=== PATIENT | female | born 1990 | race Caucasian/White ===

== ENCOUNTER 2016-08-23 19:25 | Emergency (ER) | payer OTHER ==
--- NOTE | 2016-08-23 20:18 | EDPHY ---
H & P Time Seen by Provider: 08/23/16 20:17 HPI/ROS: Chief complaint. Migraine HPI. 25-year-old female history of migraines here with 2-3 day history of typical migraine headache. No trauma. It is hard to sleep. She feels like she has had little bit of an illness with cough and congestion. She has had some hot and cold sensation and chills today. No sore throat. Denies focal weakness paresthesias. She has been working a lot over this past weekend including multiple double shifts. She also is having her menstrual. Now ROS Constitutional. Chills Eyes. no problems with vision ENT. Congestion Cardiovascular. no chest pain Respiratory. Cough Abdominal. no abdominal pain, no nausea/vomiting, no diarrhea . no problems urinating MS. no calf pain/swelling, no neck/back pain, no joint pain Skin. no rash Lymph. no swollen glands Neuro. Headache Past Medical/Surgical History: Migraines Social History: Single, nonsmoker, no alcohol Smoking Status: Never smoked Physical Exam: General Appearance: Alert well-developed female mild distress vital signs are stable Eyes: Pupils equal and round no pallor or injection. ENT, Mouth: Mucous membranes are moist. Respiratory: There are no retractions, lungs are clear to auscultation. Cardiovascular: Regular rate and rhythm. Gastrointestinal: Abdomen is soft and nontender, no masses, bowel sounds normal. Neurological: Awake and alert, sensory and motor exams grossly normal. Skin: Warm and dry, no rashes. Musculoskeletal: Neck is supple nontender. Extremities symmetrical, full range of motion. Psychiatric: Patient is oriented X 3, there is no agitation. Constitutional: Initial Vital Signs Temperature (C) 37.6 C 08/23/16 19:44 Heart Rate 76 08/23/16 19:44 Respiratory Rate 18 08/23/16 19:44 Blood Pressure 129/77 H 08/23/16 19:44 O2 Sat (%) 99 08/23/16 19:44 O2 Delivery Mode Room Air Allergies/Adverse Reactions: No Known Allergies Allergy (Unverified 08/23/16 19:46) Home Medications: Medication Instructions Recorded Norgestimate-Ethinyl Estradiol 1 each PO 08/23/16 [Tri-Sprintec Tablet] Medical Decision Making Procedures: IV normal saline. Reglan, Benadryl, Toradol IV ED Course/Re-evaluation: Recheck 9:00 p.m.--the patient talking on her cell phone and feeling better Recheck at 9:35 p.m.. Patient is stable. Headache gone. Conversational and neurologically intact Differential Diagnosis: Apparent migraine headache. I do not find any obvious bacterial infection. She may certainly have a viral infection. No evidence for intracranial bleeding or CVA - Data Points Laboratory Results: Laboratory Results 08/23/16 20:25 08/23/16 20:25 08/23/16 08/23/16 20:25 20:25 WBC 3.95 10^3/uL 10^3/uL (3.80-9.50) RBC 4.52 10^6/uL 10^6/uL (4.18-5.33) Hgb 14.0 g/dL g/dL (12.6-16.3) Hct 40.9 % % (38.0-47.0) MCV 90.5 fL fL (81.5-99.8) MCH 31.0 pg pg (27.9-34.1) MCHC 34.2 g/dL g/dL (32.4-36.7) RDW 12.6 % % (11.5-15.2) Plt Count 175 10^3/uL 10^3/uL (150-400) MPV 10.9 fL fL (8.7-11.7) Neut % (Auto) 65.8 % % (39.3-74.2) Lymph % (Auto) 16.2 % % (15.0-45.0) Bay % (Auto) 16.2 % H % (4.5-13.0) Eos % (Auto) 1.0 % % (0.6-7.6) Baso % (Auto) 0.5 % % (0.3-1.7) Nucleat RBC Rel Count 0.0 % % (0.0-0.2) Absolute Neuts (auto) 2.60 10^3/uL 10^3/uL (1.70-6.50) Absolute Lymphs (auto) 0.64 10^3/uL L 10^3/uL (1.00-3.00) Absolute Monos (auto) 0.64 10^3/uL 10^3/uL (0.30-0.80) Absolute Eos (auto) 0.04 10^3/uL 10^3/uL (0.03-0.40) Absolute Basos (auto) 0.02 10^3/uL 10^3/uL (0.02-0.10) Absolute Nucleated RBC 0.00 10^3/uL 10^3/uL (0-0.01) Immature Gran % 0.3 % % (0.0-1.1) Immature Gran # 0.01 10^3/uL 10^3/uL (0.00-0.10) Sodium 140 mEq/L mEq/L (134-144) Potassium 3.8 mEq/L mEq/L (3.5-5.2) Chloride 102 mEq/L mEq/L (97-110) Carbon Dioxide 27 mEq/l mEq/l (22-31) Anion Gap 11 mEq/L mEq/L (8-16) BUN 11 mg/dL mg/dL (7-23) Creatinine 0.8 mg/dL mg/dL (0.6-1.0) Estimated GFR > 60 Glucose 108 mg/dL H mg/dL (70-100) Calcium 9.4 mg/dL mg/dL (8.5-10.4) Medications Given: Discontinued Medications Diphenhydramine HCl (Benadryl Injection) 25 mg IVP EDNOW ONE Stop: 08/23/16 20:38 Last Admin: 08/23/16 20:55 Dose: 25 mg Ketorolac Tromethamine (Toradol) 30 mg IVP EDNOW ONE Stop: 08/23/16 20:38 Last Admin: 08/23/16 20:53 Dose: 30 mg Metoclopramide HCl (Reglan Injection) 10 mg IVP EDNOW ONE Stop: 08/23/16 20:38 Last Admin: 08/23/16 20:50 Dose: 10 mg Departure - Departure Disposition: Home, Routine, Self-Care Condition: Good Instructions: Migraine Headache (ED) Additional Instructions: May use Tylenol 1000 mg every 4-6 hours, ibuprofen 600 mg every 6 hours as needed for headache. Return for worsening symptoms. Recheck in 2 days if not improving Referrals: NONE *PRIMARY CARE P,. [Primary Care Provider] - As per Instructions Stand Alone Forms: Work Excuse
[2016-08-23] MEDS ORDERED: KETOROLAC 30 MG/1 ML SDV IVP ONE (20:37)
[2016-08-23] MEDS ORDERED: METOCLOPRAMIDE 10 MG/2 ML VIAL IVP ONE (20:37)
[2016-08-23 20:42] LABS: % IMMATURE GRANULYOCYTES 0.3 % (0.0-1.1); ABSOLUTE IMMATURE GRANULOCYTES 0.01 10^3/uL (0.00-0.10); ADD DIFF? NO; ADD MORPH? NO; ADD SCAN? NO; ATYPICAL LYMPHOCYTE FLAG 20 (0-99); FRAGMENT RBC FLAG 0 (0-99); HEMATOCRIT 40.9 % (38.0-47.0); LEFT SHIFT FLG 0 (0-99); LIPEMIA HEMOLYSIS FLAG 90 (0-99); MEAN CELL HEMOGLOBIN CONCENTR. 34.2 g/dL (32.4-36.7); MEAN CELL VOLUME 90.5 fL (81.5-99.8); MEAN PLATELET VOLUME 10.9 fL (8.7-11.7); PLATELET CLUMPS FLAG 0 (0-99); PLATELET COUNT 175 10^3/uL (150-400); RED BLOOD CELL COUNT 4.52 10^6/uL (4.18-5.33); RED CELL DISTRIBUTION WIDTH 12.6 % (11.5-15.2)
[2016-08-23 20:48] LABS: ANION GAP 11 mEq/L (8-16); CALCIUM 9.4 mg/dL (8.5-10.4); CARBON DIOXIDE 27 mEq/l (22-31); CHLORIDE 102 mEq/L (97-110); CREATININE 0.8 mg/dL (0.6-1.0); GLOMERULAR FILTRATION RATE > 60; GLUCOSE 108 mg/dL (70-100); POTASSIUM 3.8 mEq/L (3.5-5.2); SODIUM 140 mEq/L (134-144)
[2016-08-23] MEDS ORDERED: NS 1,000 ML IV ONE (20:50)
[2016-08-23 20:57] VITALS: RESP 20
[2016-08-23 21:57] VITALS: BP 126/80; PULSE 70; TEMP 98.2; O2SAT 96
== END 2016-08-23 21:58 | disposition home or self-care (01) ==
DX: G43.909 Migraine, unspecified, not intractable, without status migrainosus (principal)
CPT/HCPCS: 96374; J1200; J1885; J2765